=== PATIENT | female | born 1965 | race Caucasian/White ===

== ENCOUNTER 2017-04-12 14:18 | Emergency (ER) | payer MEDICAID ==
[~2017-04-12 14:18] MED LIST: BACL10TA PO; BUDE10.22 INH; HYDR-565 PO; HYDR12.5 PO; IPRA4AER IH; LEVO100T9 PO; LORA0.5T PO; MONT10TA21 PO; OMEP20CA10 PO; ZIPR20CA12 PO
== END 2017-04-12 17:58 | disposition left against medical advice (07) ==
LOC: ER 14:19
DX: F41.0 Panic disorder [episodic paroxysmal anxiety] (principal); Z53.21 Procedure and treatment not carried out due to patient leaving prior to being seen by health care provider

== ENCOUNTER 2017-04-17 07:24 | Emergency (ER) | payer MEDICAID ==
[~2017-04-17] VITALS: Ht 144.8 cm; Wt 86.0 kg
[2017-04-17] MEDS ORDERED: METH500T PO (07:49)
[2017-04-17] MEDS ORDERED: ONDA4TAB9 SL (07:49)
[2017-04-17 08:00] VITALS: BP 136/109
== END 2017-04-17 08:01 | disposition home or self-care (01) ==
LOC: ER 07:24
DX: S29.019A Strain of muscle and tendon of unspecified wall of thorax, initial encounter (principal); M62.830 Muscle spasm of back; I10 Essential (primary) hypertension; J44.9 Chronic obstructive pulmonary disease, unspecified; E05.90 Thyrotoxicosis, unspecified without thyrotoxic crisis or storm; G89.29 Other chronic pain; F12.10 Cannabis abuse, uncomplicated; X58.XXXA Exposure to other specified factors, initial encounter; Y93.89 Activity, other specified; Y92.89 Other specified places as the place of occurrence of the external cause; Y99.8 Other external cause status; Z88.8 Allergy status to other drugs, medicaments and biological substances
CPT/HCPCS: 99283

== ENCOUNTER 2019-04-15 07:31 | Emergency (ER) | payer MEDICAID ==
[~2019-04-15] VITALS: Ht 142.2 cm; Wt 73.0 kg
[~2019-04-15 07:31] MED LIST changes: +HYDR-4353 PO; -HYDR-565 PO; +METH500T PO; +OMEP-297 PO; -OMEP20CA10 PO
[2019-04-15 07:34] VITALS: BP 153/114
[2019-04-15] MEDS ORDERED: ipratropium/albuterol 3ml nebule NEB ONE (08:30)
[2019-04-15] MEDS ORDERED: CIPR10DR LEFT EAR (08:31)
== END 2019-04-15 08:52 | disposition home or self-care (01) ==
LOC: ER 07:32
DX: H60.92 Unspecified otitis externa, left ear (principal); J44.9 Chronic obstructive pulmonary disease, unspecified; I10 Essential (primary) hypertension; E03.9 Hypothyroidism, unspecified; M19.90 Unspecified osteoarthritis, unspecified site; G89.29 Other chronic pain; F41.9 Anxiety disorder, unspecified; F31.9 Bipolar disorder, unspecified; F12.90 Cannabis use, unspecified, uncomplicated; F10.99 Alcohol use, unspecified with unspecified alcohol-induced disorder; Z88.2 Allergy status to sulfonamides; Z88.8 Allergy status to other drugs, medicaments and biological substances; Z79.899 Other long term (current) drug therapy; Y90.9 Presence of alcohol in blood, level not specified
CPT/HCPCS: 94640; 94760; 99283